=== PATIENT | male | born 1995 | race Caucasian/White ===

== ENCOUNTER → 2024-10-25 07:07 | Outpatient (CLI) | payer OTHER, SELFPAY ==
--- NOTE | 2024-10-25 07:10 | DI.MRI.S_ITS ---
PROCEDURE: MR WRIST RT WO CON INDICATIONS: Pain TECHNIQUE: Noncontrast coronal proton density fast spin echo and T2 fast spin echo with fat saturation; coronal 3-D gradient echo, axial T1 spin echo and T2 fast spin echo with fat saturation, sagittal T1 spin echo through the wrist. COMPARISON: None. FINDINGS: Image quality: Excellent. Bones and cartilage: The carpal bones are normally aligned. No bone marrow contusions or fractures. No evidence for avascular necrosis. Overlying cartilage surfaces appear normal. Carpal ligaments: The scapholunate and lunotriquetral ligaments appear intact. In the absence of intra-articular contrast, the extrinsic carpal ligaments are not well identified. On sagittal images, the pisohamate ligament appears intact. Triangular fibrocartilage complex: Subtle signal abnormality involving ulnar aspect of triangular fibrocartilage concerning for subtle TFC perforation. The extensor carpi ulnaris tendon is mildly thickened at the level of ulnar styloid and triquetrum. Tendons and soft tissues: The carpal tunnel structures appear normal, including the median nerve. The ulnar nerve appears normal within Guyon's canal. All six extensor tendon compartments demonstrate normal morphology, without pathologic tendon sheath fluid. No soft tissue ganglion cysts. IMPRESSION: 1. Finding is concerning for subtle TFC tear near its ulnar insertion. 2. No marrow edema. No fracture or dislocation. No evidence of avascular necrosis. 3. Low-grade tendinosis involving extensor carpi ulnaris tendon at the level of ulnar styloid and triquetrum. 4. Scapholunate and lunotriquetral ligaments are intact. Dictated by: Derik Mccord M.D. on 10/25/2024 at 9:36 Approved by: Derik Mccord M.D. on 10/25/2024 at 9:55
== END ==
DX: M25.531 Pain in right wrist (principal); M67.931 Unspecified disorder of synovium and tendon, right forearm
CPT/HCPCS: 73221